=== PATIENT | male | born 1985 | race Caucasian/White ===

== ENCOUNTER 2017-02-02 03:37 | Emergency (ER) | payer OTHER ==
[~2017-02-02] VITALS: Ht 185.4 cm; Wt 79.4 kg
[2017-02-02 04:01] LABS: ABSOLUTE NEUTROPHILS 11.6 thou/uL (1.4-8.2); BASOPHILS 0.5 % (0.0-2.0); EOSINOPHILS 4.3 % (0.0-3.0); HEMATOCRIT 45.5 % (42.0-52.0); HEMOGLOBIN 15.4 gm/dL (14.0-18.0); LYMPHOCYTES 17.1 % (24.0-44.0); MANUAL DIFF NO; MCH 30.6 pg (26.0-34.0); MCHC 33.8 g/dL (28.0-37.0); MCV 90.5 fL (80.0-100.0); MONOCYTES 7.9 % (1.0-8.0); PLATELET COUNT 319 thou/uL (150-400); POLYS 70.2 % (36.0-66.0); RBC 5.03 mil/uL (4.50-6.00); RDW 13.2 % (10.5-14.5); WBC 16.5 thou/uL (4.0-11.0)
[2017-02-02 04:08] LABS: CALCIUM 9.4 mg/dL (8.5-10.1); CREATININE 1.4 mg/dL (0.7-1.3); POTASSIUM 3.7 mmol/L (3.5-5.1)
[2017-02-02 04:14] LABS: ALBUMIN 4.3 g/dL (3.4-5.0); TOTAL BILIRUBIN 0.2 mg/dL (<0.1-1.0); TOTAL PROTEIN 7.8 g/dL (6.4-8.2)
[2017-02-02] MEDS ORDERED: BACTRIM DS TAB1 EACH PO (04:46)
[2017-02-02] MEDS ORDERED: ZOFRAN ODT8 MG PO (04:46)
[2017-02-02] MEDS ORDERED: TORADOL 10 MG T10 MG PO (04:46)
[2017-02-02] MEDS ORDERED: FLOMAX0.4 MG PO (04:46)
[2017-02-02 05:05] VITALS: BP 102/64
== END 2017-02-02 05:19 | disposition home or self-care (01) ==
LOC: ER 03:37
PROVIDERS: Emergency Medicine
DX: N20.1 Calculus of ureter (principal); F17.210 Nicotine dependence, cigarettes, uncomplicated; F10.99 Alcohol use, unspecified with unspecified alcohol-induced disorder; Z88.1 Allergy status to other antibiotic agents